=== PATIENT | male | born 2000 | race African-American/Black ===

== ENCOUNTER 2021-05-02 13:56 | Emergency (ER) ==
[2021-05-02 16:39] LABS: SARS-COV-2 RT PCR NEGATIVE (NEGATIVE)
--- NOTE | 2021-05-02 16:43 | ER ---
Nurse's Notes [facility] Name: Austni Quinteros Age: 20 yrs Sex: Male : 2000 Arrival Date: 05/02/2021 Time: 14:01 Bed Treatment Private MD: Diagnosis: Encounter for screening, [id number] test Presentation: 05/02 14:20 Chief complaint: Patient states: vomiting, sinus congestion, cough x 2 days. Positive sv COVID exposure. Coronavirus screen: Client denies travel out of the [place] in the last 14 days. Client presents with at least one sign or symptom that may indicate coronavirus-19. Ebola Screen: No symptoms or risks identified at this time. Risk Assessment: Do you want to hurt yourself or someone else? Patient reports no desire to harm self or others. Onset of symptoms was April 30, 2021. 14:20 Method Of Arrival: Ambulatory sv 14:20 Acuity: YAQUELIN 4 sv 14:22 Initial Sepsis Screen: Does the patient meet any 2 criteria? No. Patient's initial sv sepsis screen is negative. Does the patient have a suspected source of infection? No. Patient's initial sepsis screen is negative. Triage Assessment: 14:23 General: Appears in no apparent distress. comfortable, Behavior is calm, cooperative, sv appropriate for age. Pain: Denies pain. Neuro: Level of Consciousness is awake, alert, obeys commands, Gait is steady. Respiratory: Respiratory effort is even, unlabored. Historical: - Allergies: 14:22 No Known Allergies; sv - PMHx: 14:22 None; sv - PSHx: 14:22 None; sv - Immunization history:: Client reports having NOT received the Covid vaccine. - Social history:: Smoking status: Patient reports the use of cigarette tobacco products, denies chronic smoking, but will smoke occasionally. Screenin:57 Abuse screen: Denies threats or abuse. Denies injuries from another. Nutritional ld1 screening: No deficits noted. Tuberculosis screening: No symptoms or risk factors identified. Fall Risk None identified. Assessment: 16:20 General: Appears in no apparent distress. comfortable, Behavior is calm, cooperative, ld1 appropriate for age. Pain: Denies pain. Neuro: Level of Consciousness is awake, alert, obeys commands, Oriented to person, place, time, situation, Appropriate for age. Cardiovascular: Capillary refill < 3 seconds Patient's skin is warm and dry. Respiratory: Airway is patent Respiratory effort is even, unlabored, Respiratory pattern is regular, symmetrical. GI: Abdomen is flat, non-distended. GI: Reports vomiting. : No signs and/or symptoms were reported regarding the genitourinary system. EENT: No signs and/or symptoms were reported regarding the EENT system. Derm: No signs and/or symptoms reported regarding the dermatologic system. Musculoskeletal: No signs and/or symptoms reported regarding the musculoskeletal system. Vital Signs: 14:22 BP 127 / 81; Pulse 67; Resp 18; Temp 97.9(O); Pulse Ox 100% ; Weight 66.68 kg; Height 5 sv ft. 9 in. (175.26 cm); 16:57 BP 116 / 90; Pulse 69; Resp 18; Pulse Ox 100% ; ld1 14:22 Body Mass Index 21.71 (66.68 kg, 175.26 cm) sv ED Course: 14:01 Patient arrived in ED. am2 14:20 Arm band placed on. sv 14:21 Triage completed. sv 15:29 Moises Lantigua PA is PHCP. cp 15:29 Moises Ramos MD is Attending Physician. cp 16:57 Patient has correct armband on for positive identification. Bed in low position. Call ld1 light in reach. Side rails up X2. Pulse ox on. NIBP on. 16:57 No provider procedures requiring assistance completed. Patient did not have IV access ld1 during this emergency room visit. intact, bleeding controlled, No redness/swelling at site. Administered Medications: No medications were administered Outcome: 16:42 Discharge ordered by MD. cp 16:58 Discharged to home ambulatory. ld1 16:58 Condition: stable 16:58 Discharge instructions given to patient, Instructed on discharge instructions, follow up and referral plans. Demonstrated understanding of instructions, follow-up care. 16:58 Patient left the ED. ld1 Signatures: Rosie Powell RN RN Moises Lantigua PA PA Meenakshi Wu am2 Kaela Zamorano RN RN ld1 Corrections: (The following items were deleted from the chart) 14:24 14:22 Pulse 67bpm; Resp 18bpm; Pulse Ox 100%; Temp 97.9F Oral; 66.68 kg; Height 5 ft. 9 sv in.; BMI: 21.7; sv
--- NOTE | 2021-05-02 16:43 | EDPHYS ---
Physician Documentation [facility] Name: Austin Quinteros Age: 20 yrs Sex: Male : 2000 Arrival Date: 05/02/2021 Time: 14:01 Bed Treatment Private MD: Moises Harmon HPI: 05/02 16:25 This 20 yrs old Black Male presents to ER via Ambulatory with complaints of r/o covid. cp 16:25 Patient reports he woke up vomited 2 days ago and had known exposure to COVID-19. cp Patient reports mother tested positive. Denies cough, sore throat. No vomiting and/or diarrhea today. Historical: - Allergies: 14:22 No Known Allergies; sv - PMHx: 14:22 None; sv - PSHx: 14:22 None; sv - Immunization history:: Client reports having NOT received the Covid vaccine. - Social history:: Smoking status: Patient reports the use of cigarette tobacco products, denies chronic smoking, but will smoke occasionally. ROS: 16:26 Eyes: Negative for injury, pain, redness, and discharge. cp 16:26 Constitutional: Negative for body aches, chills, fever, poor PO intake. 16:26 ENT: Negative for drainage from ear(s), ear pain, sore throat, difficulty swallowing, difficulty handling secretions. 16:26 Cardiovascular: Negative for chest pain. 16:26 Respiratory: Negative for cough, shortness of breath, wheezing. 16:26 Abdomen/GI: Negative for abdominal pain, nausea, diarrhea, constipation, active vomiting. 16:26 Neuro: Negative for headache. 16:26 All other systems are negative. Exam: 16:27 Head/Face: Normocephalic, atraumatic. cp 16:27 Constitutional: The patient appears in no acute distress, alert, awake, non-toxic, well developed, well nourished. 16:27 Eyes: Periorbital structures: appear normal, Conjunctiva: normal, no exudate, no injection, Sclera: no appreciated abnormality, Lids and lashes: appear normal, bilaterally. 16:27 ENT: External ear(s): are unremarkable, Nose: is normal, Mouth: Lips: moist, Oral mucosa: pink and intact, moist, Posterior pharynx: Airway: no evidence of obstruction, patent, Tonsils: no enlargement, no erythema, no exudate, Uvula: midline, swelling, is not appreciated, erythema, is not appreciated. 16:27 Chest/axilla: Inspection: normal. 16:27 Cardiovascular: Rate: normal. 16:27 Respiratory: the patient does not display signs of respiratory distress, Respirations: normal, no use of accessory muscles, no retractions, labored breathing, is not present. 16:27 Abdomen/GI: Exam negative for discomfort, distension, guarding, Inspection: abdomen appears normal. 16:27 Skin: no rash present. Vital Signs: 14:22 BP 127 / 81; Pulse 67; Resp 18; Temp 97.9(O); Pulse Ox 100% ; Weight 66.68 kg; Height 5 sv ft. 9 in. (175.26 cm); 16:57 BP 116 / 90; Pulse 69; Resp 18; Pulse Ox 100% ; ld1 14:22 Body Mass Index 21.71 (66.68 kg, 175.26 cm) sv MDM: 16:08 Patient medically screened. [facility] 16:41 Data reviewed: vital signs, nurses notes, lab test result(s). Counseling: I had a cp detailed discussion with the patient and/or guardian regarding: the historical points, exam findings, and any diagnostic results supporting the discharge/admit diagnosis, lab results, to return to the emergency department if symptoms worsen or persist or if there are any questions or concerns that arise at home. 05/02 15:29 Order name: COVID-19 : Document "Date of Symptom Onset" if Symptomatic. 05/02 15:29 Order name: Influenza Screen (a \\T\\ B) 05/02 16:39 Order name: COVID-19/FLU A+B EDMS Administered Medications: No medications were administered Disposition: 05/03 05:26 Co-signature as Attending Physician, Moises Ramos MD I agree with the assessment and [facility] plan of care. Disposition Summary: 05/02/21 16:42 Discharge Ordered Location: Home cp Problem: new cp Symptoms: have improved cp Condition: Stable cp Diagnosis - Encounter for screening, unspecified - COVID-19 test cp Followup: cp - With: Private Physician - When: 2 - 3 days - Reason: Worsening of condition Discharge Instructions: - COVID-19: What Your Test Results Mean - [facility] cp - COVID-19 Frequently Asked Questions cp - Discharge Summary Sheet ld1 - Things to Know about the COVID-19 Pandemic - [facility] cp - Frequently Asked Questions About COVID-19 Vaccination - [facility] cp Forms: - Medication Reconciliation Form cp - Work release form ld1 - Thank You Letter cp - Antibiotic Education cp - Prescription Opioid Use cp Signatures: Dispatcher [employer] EDRosie Santana RN RN sv Anderson, Corey, MD MD cha Page, Corey, PA PA cp Corrections: (The following items were deleted from the chart) 05/02 14:59 14:24 CORONAVIRUS+.BRZ ordered. EDMS EDMS 15:57 15:30 CORONAVIRUS ordered. EDMS EDMS 15:58 15:30 Influenza Screen (A ordered. EDMS EDMS
== END 2021-05-02 16:58 | disposition home or self-care (01) ==
LOC: ER 13:56
DX: Z20.822 Contact with and (suspected) exposure to COVID-19 (principal)
CPT/HCPCS: 0240U; 99283